=== PATIENT | female | born 1985 | race Caucasian/White ===

== ENCOUNTER → 2016-03-31 | Outpatient (CLI) | payer BC, OTHER ==
[~2016-03-31] MED LIST: CLON0.5T3 PO; HYDR-5688 PO; IBUP-1050 PO; MULT-506 PO
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
== END | disposition home or self-care (01) ==
LOC: C.RDSM 13:30
PROVIDERS: ATTEND Physical Medicine & Rehabilitation Sports Medicine
DX: S82.831A Other fracture of upper and lower end of right fibula, initial encounter for closed fracture (principal); X58.XXXA Exposure to other specified factors, initial encounter

== ENCOUNTER 2016-04-19 05:25 | Emergency (ER) | payer BC, OTHER ==
[~2016-04-19] VITALS: Ht 152.4 cm; Wt 61.5 kg
[2016-04-19 05:34] VITALS: TEMP 36.7; Ht 152.4 cm; Wt 61.5 kg
[2016-04-19] MEDS ORDERED: ONDANSETRON INJ 2 MG/ML 2 ML VIAL IV STA (05:37)
[2016-04-19] MEDS ORDERED: MoRPHine SULFATE 4 MG/ML 1 ML CARP\\VIAL IV ONE ×2 (05:45→07:00)
[2016-04-19] MEDS ORDERED: SODIUM CHLORIDE 0.9% 1000ML 1,000 ML IV ONE (05:45)
[2016-04-19] MEDS ORDERED: OPTIRAY 320 IV PRN (06:00)
[2016-04-19 06:13] LABS: BASO % 0.2 %; BASO ABS # 0.04 K/uL (0-0.2); COMPLETE YES; EOS % 1.2 %; HEMATOCRIT 36.1 % (37-47); IG% 0.2 %; LYMPH % 15.2 %; LYMPH ABS # 2.79 K/uL (1.2-3.4); MEAN CELL VOLUME 96.3 fL (80-100); MEAN CORPUSCULAR HEMOGLOBIN 32.8 pg (25-34); MEAN CORPUSCULAR HGB CONC 34.1 g/dl (32-36); MEAN PLATELET VOLUME 9.7 fL (7.4-10.4); MONO % 8.5 %; NEUT % 74.7 %; PLATELET COUNT 341 K/uL (130-400); RED BLOOD COUNT 3.75 M/uL (4.2-5.4)
[2016-04-19 06:30] LABS: BUN/CREATININE RATIO 23.3 (10-20); CALCIUM 8.5 mg/dl (8.5-10.1); CREATININE 0.7 mg/dl (0.60-1.20); POTASSIUM 3.8 mmol/L (3.5-5.1)
[2016-04-19 06:32] LABS: ALB/GLOB RATIO 1.4 (0.9-2)
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
[2016-04-19] MEDS ORDERED: MULT-506 PO (06:50)
[2016-04-19] MEDS ORDERED: CLON0.5T3 PO (06:50)
[2016-04-19] MEDS ORDERED: IBUP-1050 PO (06:51)
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
[2016-04-19] MEDS ORDERED: HYDR-5688 PO (08:08)
[2016-04-19 08:53] VITALS: BP 94/55; PULSE 80; O2SAT 99
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
== END 2016-04-19 08:54 | disposition home or self-care (01) ==
LOC: EDBD 05:25 → C.EDB 05:28
DX: S09.21XA Traumatic rupture of right ear drum, initial encounter (principal); S19.9XXA Unspecified injury of neck, initial encounter; Y04.8XXA Assault by other bodily force, initial encounter; Y92.098 Other place in other non-institutional residence as the place of occurrence of the external cause; Y07.59 Other non-family member, perpetrator of maltreatment and neglect; F17.210 Nicotine dependence, cigarettes, uncomplicated

== ENCOUNTER → 2016-04-21 | Outpatient (CLI) | payer BC ==
--- NOTE | 2016-04-21 15:32 | DIAGNOSTIC IMAGING REPORT ---
RIGHT ANKLE 3 VIEWS HISTORY: Follow-up right ankle fracture. COMPARISON: Right ankle 03/31/2016. FINDINGS: No change in alignment or appearance of the oblique fracture within the distal right fibula. This demonstrates up to 2 mm of lateral displacement. Minimal bony bridging remains unchanged. No additional healing identified. IMPRESSION: No change in alignment or appearance of the minimally healed distal right fibular fracture. No additional healing identified. Electronically signed by: Ivan Guillory M.D. 04/21/2016 3:31 PM Dictated Date/Time: 04/21/2016 3:29 PM
== END | disposition home or self-care (01) ==
LOC: C.RDSM 13:15
PROVIDERS: ATTEND Physical Medicine & Rehabilitation Sports Medicine
DX: Z09 Encounter for follow-up examination after completed treatment for conditions other than malignant neoplasm (principal)

== ENCOUNTER → 2016-05-18 | Outpatient (CLI) | payer BC ==
--- NOTE | 2016-05-18 09:30 | DIAGNOSTIC IMAGING REPORT ---
RIGHT ANKLE 3 VIEWS HISTORY: F/U RIGHT ANKLE FX Right COMPARISON: None. FINDINGS: There is again noted a slightly displaced oblique fracture within the distal right fibula. The alignment remains unchanged. Lateral soft tissue swelling has slightly improved. There is suggestion of mild bony bridging at the fracture site consistent with interval healing. No radiopaque foreign bodies. IMPRESSION: Slight interval healing of the mildly displaced distal right fibular fracture. The alignment remains unchanged. Electronically signed by: Ivan Guillory M.D. 05/18/2016 9:29 AM Dictated Date/Time: 05/18/2016 9:26 AM
== END | disposition home or self-care (01) ==
LOC: C.RDSM 09:30
PROVIDERS: ATTEND Physical Medicine & Rehabilitation Sports Medicine
DX: Z09 Encounter for follow-up examination after completed treatment for conditions other than malignant neoplasm (principal); S82.831D Other fracture of upper and lower end of right fibula, subsequent encounter for closed fracture with routine healing; X58.XXXD Exposure to other specified factors, subsequent encounter

== ENCOUNTER → 2016-07-23 | Outpatient (CLI) | payer BC ==
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
== END | disposition home or self-care (01) ==
LOC: C.RDSM 10:30
PROVIDERS: ATTEND Physician Assistant
DX: Z09 Encounter for follow-up examination after completed treatment for conditions other than malignant neoplasm (principal); M25.571 Pain in right ankle and joints of right foot; S82.831D Other fracture of upper and lower end of right fibula, subsequent encounter for closed fracture with routine healing; X58.XXXD Exposure to other specified factors, subsequent encounter

== ENCOUNTER 2018-07-21 02:51 | Inpatient (IN) ==
[2018-07-21] MEDS ORDERED: LORazepam 0.5 MG/1 ML VIAL IV STA (03:12)
[2018-07-21] MEDS ORDERED: SODIUM CHLORIDE 0.9% 1000ML 1,000 ML IV SCH (03:15)
[2018-07-21 03:32] LABS: Basophils # (auto) 0.02 K/uL (0-0.2); Basophils % (auto) 0.2 %; Eosinophils # (auto) 0.16 K/uL (0-0.5); Eosinophils % (auto) 1.5 %; Hemoglobin 11.9 g/dL (12.0-16.0); Immature Granulocytes # (auto) 0.02 K/uL (0.00-0.02); Immature Granulocytes % (auto) 0.2 %; Lymphocytes # (auto) 3.04 K/uL (1.2-3.4); Lymphocytes % (auto) 29.3 %; Mean Corpuscular Hgb Conc 36.1 g/dL (32-36); Mean Platelet Volume 9.1 fL (7.4-10.4); Monocytes # (auto) 0.78 K/uL (0.11-0.59); Monocytes % (auto) 7.5 %; Neutrophils # (auto) 6.35 K/uL (1.4-6.5); Neutrophils % (auto) 61.3 %; Platelet Count 369 K/uL (130-400); RDW Coefficient of Variation 12.6 % (11.5-14.5); Red Blood Count 3.55 M/uL (4.2-5.4); White Blood Count 10.37 K/uL (4.8-10.8)
[2018-07-21 03:44] LABS: Partial Thromboplastin Ratio 0.9; Partial Thromboplastin Time 24.1 Seconds (21.0-31.0); Prothrombin Time 10.3 Seconds (9.0-12.0)
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
--- NOTE | 2018-07-21 03:48 | Emergency Department Note ---
History of Present Illness General Chief complaint: Overdose (Intentional) Stated complaint: TOOK TOO MANY PILLS Time Seen by Provider: 07/21/18 03:02 History of Present Illness Maximum Pain Intensity: 0 This is a 33-year-old female presenting to the emergency department by triage for evaluation of intentional overdose. The patient is accompanied by a male welcome desk agent assist in the history. The patient states that she had a counseling appointment earlier today, where she spoke about "old shit in my life" which caused her to "re-live it all over again". The patient began drinking alcohol, a bottle of wine, approximately 4 to 5 hours prior to arrival, around 10 or 11 PM. She then began taking her Seroquel around 2 hours prior to arrival at 1 AM. She evidently took 30 pills, which are believed to be 25 mg tablets, however we are unable to verify this. The patient states that she did this to "get some sleep", and this was not an attempt to harm herself. She does not have suicidal or homicidal ideation. She does have an extensive mental health history including past suicide attempts. The patient's male welcome desk agent found the patient obtunded around 1 AM, and called poison control, who recommended ER evaluation. The patient herself does not report recent fever or illness. She is currently without headache, neck pain, chest pain, chest tightness, shortness of breath, or abdominal pain. She denies chance of . She admits to smoking tobacco, and denies drug use. She rates her current discomfort as 0/10. Evidently the patient has multiple medications at home, but is not believed to have taken additional pills other than the Seroquel. Home Medications Home Medications Medication Instructions Recorded Confirmed Type gabapentin 100 mg PO BID 07/21/18 07/21/18 History quetiapine [Seroquel XR] 200 mg PO PM 07/21/18 07/21/18 History Allergies Allergy/AdvReac Type Severity Reaction Status Date / Time No Known Allergies Allergy Unverified 07/21/18 03:40 Past Med/Surg History Medical History Previous known suicide attempt Depression No acute medical problems Social History Preferred Language: Armenian Feels Safe at Home: Yes Smoking Status: Current every day smoker Review of Systems A total of 10 systems reviewed and were otherwise negative Physical Exam Vital Signs Vital Signs - 24 hr 07/21/18 02:53 07/21/18 03:05 07/21/18 03:46 Temperature 36.7 C Temperature Source Oral Sepsis Recent Fever Within 48 Hours No Sepsis Action Taken by Nursing No Action Required Pulse Rate 148 H Pulse Rate [Apical] 115 H Pulse Rhythm [Apical] Regular Pulse Strength [Apical] Respiratory Rate 18 16 Respiratory Effort / Characteristics Non-Labored Spontaneous Non-Labored Spontaneous Respiratory Depth Normal Normal Blood Pressure 108/56 L Blood Pressure [Left Arm] 99/68 L Blood Pressure Mean 73 Blood Pressure Mean [Left Arm] 78 Blood Pressure Position Sitting Blood Pressure Position [Left Arm] Lying Pulse Oximetry 98 95 Oxygen Delivery Method Room Air Room Air Room Air 07/21/18 04:30 07/21/18 04:55 Temperature Temperature Source Sepsis Recent Fever Within 48 Hours Sepsis Action Taken by Nursing Pulse Rate Pulse Rate [Apical] 124 H 106 H Pulse Rhythm [Apical] Regular Regular Pulse Strength [Apical] Normal Respiratory Rate 20 16 Respiratory Effort / Characteristics Non-Labored Respiratory Depth Normal Normal Blood Pressure Blood Pressure [Left Arm] 133/63 116/54 L Blood Pressure Mean Blood Pressure Mean [Left Arm] 86 74 Blood Pressure Position Blood Pressure Position [Left Arm] Sitting Pulse Oximetry 96 Oxygen Delivery Method Room Air Room Air VITALS: Vitals are noted on the nurse's note and reviewed by myself. Vital signs with tachycardia. GENERAL: White female who is slightly slurring her speech but able to answer questions. She does appear intoxicated or under the influence of sedatives. GCS 15. HEAD: Normocephalic atraumatic. EARS: External ear normal. External auditory canals clear, tympanic membranes pearly davila without erythema or effusion bilaterally. EYES: Pupils equal round and reactive to light and accommodation. Conjunctivae without injection, sclerae without icterus. Extraocular movements intact. NOSE: Patent, turbinates without inflammation or discharge. MOUTH: Mucous membranes moist. Tonsils are not enlarged. Pharynx without erythema, blood, or exudate. Uvula midline. Airway patent. NECK: Supple without nuchal rigidity. No lymphadenopathy. No thyromegaly. Cervical spine is nontender. No meningmus. HEART: Tachycardic rate with regular rhythm LUNGS: Clear to auscultation bilaterally without wheezes, rales or rhonchi. No retractions or accessory muscle use. ABDOMEN: Positive normal bowel sounds x 4. Soft, nontender, without masses or organomegaly. MUSCULOSKELETAL: No muscle atrophy, erythema, or edema noted. Full range of motion in all extremities. NEURO: Patient was alert to person and place but not time. Cranial nerves appear grossly intact. Patient appears sedated and is answering questions very slowly, but overall appropriately. SKIN: The skin was without rashes, erythema, edema, or bruising. Capillary refill less than 2 seconds. Course Administered Medications Lactated Ringer's (Lr) 1,000 mls @ 500 mls/hr IV .Q2H ONE Stop: 07/21/18 06:57 Last Admin: 07/21/18 05:14 Dose: 500 mls/hr Documented by: [id number] Discontinued Medications Lorazepam (Ativan) 0.5 mg in 1 mls @ 1 mls/min IV NOW STA Stop: 07/21/18 03:13 Last Admin: 07/21/18 03:33 Dose: 1 mls/min Documented by: [id number] Sodium Chloride (Nss 1000ml) 1,000 mls @ 999 mls/hr IV .Q1H1M KIRK Stop: 07/21/18 04:15 Last Infusion: 07/21/18 05:18 Dose: 0 mls/hr Documented by: [id number] Admin: 07/21/18 03:32 Dose: 999 mls/hr Documented by: [id number] Potassium Chloride (Klor-Con M20) 40 meq PO NOW STA Stop: 07/21/18 04:59 Last Admin: 07/21/18 05:13 Dose: 40 meq Documented by: [id number] Medical Decision Making Differential Diagnosis Differential includes overdose on prescription medication, mental health disease, Tylenol/aspirin/ethanol, ethylene glycol, methanol, not prescribed medications/street drugs, metabolic process, traumatic process, infection, and others Laboratory Data Result diagrams: 07/21/18 03:18 07/21/18 03:18 Lab Results 07/21/18 07/21/18 07/21/18 Range/Units 03:18 03:18 03:18 WBC 10.37 (4.8-10.8) K/uL RBC 3.55 L (4.2-5.4) M/uL Hgb 11.9 L (12.0-16.0) g/dL Hct 33.0 L (37-47) % MCV 93.0 (80-100) fL MCH 33.5 (25-34) pg MCHC 36.1 H (32-36) g/dL RDW Std Deviation 43.0 (36.4-46.3) fL RDW Coeff of [place]en[place] 12.6 (11.5-14.5) % Plt Count 369 (130-400) K/uL MPV 9.1 (7.4-10.4) fL Immature Gran % (Auto) 0.2 % Neut % (Auto) 61.3 % Lymph % (Auto) 29.3 % [place] % (Auto) 7.5 % Eos % (Auto) 1.5 % Baso % (Auto) 0.2 % Immature Gran # (Auto) 0.02 (0.00-0.02) K/uL Neut # (Auto) 6.35 (1.4-6.5) K/uL Lymph # (Auto) 3.04 (1.2-3.4) K/uL [place] # (Auto) 0.78 H (0.11-0.59) K/uL Eos # (Auto) 0.16 (0-0.5) K/uL Baso # (Auto) 0.02 (0-0.2) K/uL PT 10.3 (9.0-12.0) Seconds INR 1.0 (0.9-1.1) APTT 24.1 (21.0-31.0) Seconds PTT Ratio 0.9 Sodium 140 (136-145) mmol/L Potassium 3.1 L (3.5-5.1) mmol/L Chloride 107 (98-107) mmol/L Carbon Dioxide 23 (21-32) mmol/L Anion Gap 10.0 (3-11) BUN 13 (7-18) mg/dl Creatinine 0.80 (0.6-1.2) mg/dl Est Cr Clr Drug Dosing 90.3 ml/min Est GFR ( Amer) 111.5 Est GFR (Non-Af Amer) 96.2 BUN/Creatinine Ratio 15.7 (10-20) Glucose 93 (70-99) mg/dl Calcium 8.6 (8.5-10.1) mg/dl Magnesium 2.0 (1.8-2.4) mg/dl Total Bilirubin 0.3 (0.2-1) mg/dl AST 12 L (15-37) U/L ALT 19 (12-78) U/L Alkaline Phosphatase 58 (45-117) U/L Total Creatine Kinase 63 (26-192) U/L Troponin I < 0.015 (0-0.045) ng/ml Total Protein 7.4 (6.4-8.2) gm/dl Albumin 3.9 (3.4-5.0) gm/dl Globulin 3.5 (2.5-4.0) gm/dl Albumin/Globulin Ratio 1.1 (0.9-2) Lipase 144 (73-393) U/L TSH 3.730 (0.300-4.500) uIu/ml HCG, Qual (Negative) Urine Color Urine Appearance (Clear) Urine pH (4.5-7.5) Ur Specific [place] (1.000-1.030) Urine Protein (Negative) Urine Glucose (UA) (Negative) Urine Ketones (Negative) Urine Blood (Negative) Urine Nitrite (Negative) Urine Bilirubin (Negative) Urine Urobilinogen (Negative) Ur Leukocyte Esterase (Negative) Urine WBC (Auto) (0-5) /hpf Urine RBC (Auto) (0-4) /hpf U Hyaline Cast (Auto) (0-5) /lpf U Epithel Cells (Auto) (0-5) /lpf Urine Bacteria (Auto) (Negative) Salicylates (2.8-20) mg/dl Urine Opiates Screen (Neg) Ur Methadone, Qual (Neg) Acetaminophen (10-30) ug/ml Urine Barbiturates (Neg) Ur Phencyclidine (PCP) (Neg) U Amphetamin/Meth Scrn (Neg) MDMA (Ecstasy) Screen (Neg) U Benzodiazepines Scrn (Neg) [place] (0.6-1.2) mmol/L Ur Cocaine Metabolite (Neg) U Marijuana (THC) Screen (Neg) Ethyl Alcohol mg/dL (0-3) mg/dl 07/21/18 07/21/18 07/21/18 Range/Units 03:18 03:18 03:18 WBC (4.8-10.8) K/uL RBC (4.2-5.4) M/uL Hgb (12.0-16.0) g/dL Hct (37-47) % MCV (80-100) fL MCH (25-34) pg MCHC (32-36) g/dL RDW Std Deviation (36.4-46.3) fL RDW Coeff of Nenita (11.5-14.5) % Plt Count (130-400) K/uL MPV (7.4-10.4) fL Immature Gran % (Auto) % Neut % (Auto) % Lymph % (Auto) % [place] % (Auto) % Eos % (Auto) % Baso % (Auto) % Immature Gran # (Auto) (0.00-0.02) K/uL Neut # (Auto) (1.4-6.5) K/uL Lymph # (Auto) (1.2-3.4) K/uL [place] # (Auto) (0.11-0.59) K/uL Eos # (Auto) (0-0.5) K/uL Baso # (Auto) (0-0.2) K/uL PT (9.0-12.0) Seconds INR (0.9-1.1) APTT (21.0-31.0) Seconds PTT Ratio Sodium (136-145) mmol/L Potassium (3.5-5.1) mmol/L Chloride (98-107) mmol/L Carbon Dioxide (21-32) mmol/L Anion Gap (3-11) BUN (7-18) mg/dl Creatinine (0.6-1.2) mg/dl Est Cr Clr Drug Dosing ml/min Est GFR ( Amer) Est GFR (Non-Af Amer) BUN/Creatinine Ratio (10-20) Glucose (70-99) mg/dl Calcium (8.5-10.1) mg/dl Magnesium (1.8-2.4) mg/dl Total Bilirubin (0.2-1) mg/dl AST (15-37) U/L ALT (12-78) U/L Alkaline Phosphatase (45-117) U/L Total Creatine Kinase (26-192) U/L Troponin I (0-0.045) ng/ml Total Protein (6.4-8.2) gm/dl Albumin (3.4-5.0) gm/dl Globulin (2.5-4.0) gm/dl Albumin/Globulin Ratio (0.9-2) Lipase (73-393) U/L TSH (0.300-4.500) uIu/ml HCG, Qual Negative (Negative) Urine Color Urine Appearance (Clear) Urine pH (4.5-7.5) Ur Specific [place] (1.000-1.030) Urine Protein (Negative) Urine Glucose (UA) (Negative) Urine Ketones (Negative) Urine Blood (Negative) Urine Nitrite (Negative) Urine Bilirubin (Negative) Urine Urobilinogen (Negative) Ur Leukocyte Esterase (Negative) Urine WBC (Auto) (0-5) /hpf Urine RBC (Auto) (0-4) /hpf U Hyaline Cast (Auto) (0-5) /lpf U Epithel Cells (Auto) (0-5) /lpf Urine Bacteria (Auto) (Negative) Salicylates 2.5 L (2.8-20) mg/dl Urine Opiates Screen (Neg) Ur Methadone, Qual (Neg) Acetaminophen < 2 L (10-30) ug/ml Urine Barbiturates (Neg) Ur Phencyclidine (PCP) (Neg) U Amphetamin/Meth Scrn (Neg) MDMA (Ecstasy) Screen (Neg) U Benzodiazepines Scrn (Neg) [place] < 0.2 L (0.6-1.2) mmol/L Ur Cocaine Metabolite (Neg) U Marijuana (THC) Screen (Neg) Ethyl Alcohol mg/dL 89.0 H (0-3) mg/dl 07/21/18 07/21/18 Range/Units 04:30 04:30 WBC (4.8-10.8) K/uL RBC (4.2-5.4) M/uL Hgb (12.0-16.0) g/dL Hct (37-47) % MCV (80-100) fL MCH (25-34) pg MCHC (32-36) g/dL RDW Std Deviation (36.4-46.3) fL RDW Coeff of [place]en[place] (11.5-14.5) % Plt Count (130-400) K/uL MPV (7.4-10.4) fL Immature Gran % (Auto) % Neut % (Auto) % Lymph % (Auto) % [place] % (Auto) % Eos % (Auto) % Baso % (Auto) % Immature Gran # (Auto) (0.00-0.02) K/uL Neut # (Auto) (1.4-6.5) K/uL Lymph # (Auto) (1.2-3.4) K/uL [place] # (Auto) (0.11-0.59) K/uL Eos # (Auto) (0-0.5) K/uL Baso # (Auto) (0-0.2) K/uL PT (9.0-12.0) Seconds INR (0.9-1.1) APTT (21.0-31.0) Seconds PTT Ratio Sodium (136-145) mmol/L Potassium (3.5-5.1) mmol/L Chloride (98-107) mmol/L Carbon Dioxide (21-32) mmol/L Anion Gap (3-11) BUN (7-18) mg/dl Creatinine (0.6-1.2) mg/dl Est Cr Clr Drug Dosing ml/min Est GFR ( Amer) Est GFR (Non-Af Amer) BUN/Creatinine Ratio (10-20) Glucose (70-99) mg/dl Calcium (8.5-10.1) mg/dl Magnesium (1.8-2.4) mg/dl Total Bilirubin (0.2-1) mg/dl AST (15-37) U/L ALT (12-78) U/L Alkaline Phosphatase (45-117) U/L Total Creatine Kinase (26-192) U/L Troponin I (0-0.045) ng/ml Total Protein (6.4-8.2) gm/dl Albumin (3.4-5.0) gm/dl Globulin (2.5-4.0) gm/dl Albumin/Globulin Ratio (0.9-2) Lipase (73-393) U/L TSH (0.300-4.500) uIu/ml HCG, Qual (Negative) Urine Color Yellow Urine Appearance Clear (Clear) Urine pH 5.0 (4.5-7.5) Ur Specific [place] 1.031 H (1.000-1.030) Urine Protein Negative (Negative) Urine Glucose (UA) Negative (Negative) Urine Ketones Negative (Negative) Urine Blood 3+ H (Negative) Urine Nitrite Negative (Negative) Urine Bilirubin Negative (Negative) Urine Urobilinogen Negative (Negative) Ur Leukocyte Esterase Negative (Negative) Urine WBC (Auto) 1-5 (0-5) /hpf Urine RBC (Auto) 0-4 (0-4) /hpf U Hyaline Cast (Auto) 1-5 (0-5) /lpf U Epithel Cells (Auto) >30 H (0-5) /lpf Urine Bacteria (Auto) Negative (Negative) Salicylates (2.8-20) mg/dl Urine Opiates Screen Neg (Neg) Ur Methadone, Qual Neg (Neg) Acetaminophen (10-30) ug/ml Urine Barbiturates Neg (Neg) Ur Phencyclidine (PCP) Neg (Neg) U Amphetamin/Meth Scrn Neg (Neg) MDMA (Ecstasy) Screen Neg (Neg) U Benzodiazepines Scrn Neg (Neg) [place] (0.6-1.2) mmol/L Ur Cocaine Metabolite Neg (Neg) U Marijuana (THC) Screen Neg (Neg) Ethyl Alcohol mg/dL (0-3) mg/dl ECG Data Additional Comments: EKG #1 @ 03:05 am Sinus tachycardia at 118 bpm Possible left atrial enlargement IA 164 QRS 86 QT 330/QTc 462 EKG #2@ 04:07am Sinus tachycardia at 112 bpm Possible left atrial enlargement IA 156 QRS 88 QT 346/QTc 472 MDM Narrative Physical exam and history were performed. Nursing notes, EMR, and Medication List were personally reviewed. Patient appears to have taken 30 Seroquel tonight, as well as consumed a bottle of wine. On examination the patient is able to answer questions, although she appears significantly sedated. The case was discussed with my attending physician, who also independently evaluated the patient. Based on the patient's reported overdose we did contact [facility] who recommended blood work, hydration, Ativan, and monitoring for at least 12 hours. EKG was performed as above and she was placed on the site monitor. The patient's blood work is as above and was reviewed. She does not have a significantly elevated white blood cell count, gross anemia, bandemia, or significant electrolyte imbalance. Lipase and transaminases are not diagnostic. She is not . TSH shows euthyroid state. Troponin is negative. CK is 63. Urine does not show evidence of infection, and drug of abuse screen is negative. Her alcohol is 89. Salicylates, Tylenol, and lithium levels are negative. Chest x-ray does not show acute process. Repeat EKG was performed does not show significant changes. Overall the patient does not appear well for discharge home. She continues to have intermittent episodes of tachycardia, but thankfully has not gone hypotensive. Medical clearance will take at least 12 hours after the ingestion of the Seroquel. I discussed the case with the on-call hospitalist, Dr. Shetty, who agreed to evaluate the patient here in the department. Please see his dictation for further patient course, plan, and disposition. The chart was completed utilizing [employer] Speech Voice Recognition Software. Grammatical errors, random word insertions, pronoun errors, and incomplete sentences are an occasional consequence of this system due to software limitations, ambient noise, and hardware issues. Any formal questions or con cerns about the content, text, or information contained within the body of this dictation should be directly addressed to the provider for clarification. . Impression & Plan Intentional drug overdose Critical Care Time I have personally spent greater than 30 minutes of critical care time in the dir ect management of this patient. This includes bedside care, interpretation of diagnostic studies, and testing, discussion with consultants, patient, and family members, and other required patient management activities. This 30 minutes is in excess of all separately billable procedures. Discharge Plan Visit Data Chief Complaint: Overdose (Intentional) Stated Complaint: TOOK TOO MANY PILLS ED Provider: Pradeep Sorenson ED Midlevel Provider: Poncho Horton Discharge Problem: Intentional drug overdose Forms Stand Alone Forms: My [facility] [employer] Prescriptions Prescriptions: No Action quetiapine [Seroquel XR] 200 mg Tablet Extended Release 24 Hr 200 mg PO PM RF: 0 gabapentin 100 mg Capsule 100 mg PO BID RF: 0 Referrals Referrals: Shira García DO [Primary Care Provider] - Discharge Problem: Intentional drug overdose Qualifiers: Encounter type: initial encounter Qualified Code(s): T50.902A - Poisoning by unspecified drugs, medicaments and biological substances, intentional self-harm, initial encounter
[2018-07-21 03:51] LABS: Alanine Aminotransferase 19 U/L (12-78); Albumin Level 3.9 gm/dl (3.4-5.0); Aspartate Aminotransferase 12 U/L (15-37); BUN Creatinine Ratio 15.7 (10-20); Blood Urea Nitrogen 13 mg/dl (7-18); Calcium 8.6 mg/dl (8.5-10.1); Carbon Dioxide 23 mmol/L (21-32); Chloride 107 mmol/L (98-107); Creatinine Clr Calc Pharmacy 90.3 ml/min; Est GFR (African American) 111.5; Est GFR (Non-African American) 96.2; Glucose 93 mg/dl (70-99); Potassium 3.1 mmol/L (3.5-5.1); Sodium 140 mmol/L (136-145)
[2018-07-21 03:52] LABS: Pregnancy Test, Serum Negative (Negative)
[2018-07-21 04:00] LABS: Acetaminophen < 2 ug/ml (10-30); Lithium < 0.2 mmol/L (0.6-1.2); Salicylate 2.5 mg/dl (2.8-20)
[2018-07-21 04:02] LABS: Albumin Globulin Ratio 1.1 (0.9-2); Alkaline Phosphatase 58 U/L (45-117); Bilirubin,Total 0.3 mg/dl (0.2-1); Creatine Kinase 63 U/L (26-192); Globulin 3.5 gm/dl (2.5-4.0); Total Protein 7.4 gm/dl (6.4-8.2); Troponin I < 0.015 ng/ml (0-0.045)
[2018-07-21 04:37] LABS: Appearance Urine Clear (Clear); Bacteria Urine Automated Negative (Negative); Bilirubin Urine Negative (Negative); Blood Urine 3+ (Negative); Color Urine Yellow; Epithelial Cell Urine Auto >30 /lpf (0-5); Glucose Urine UA Negative (Negative); Ketones Urine Negative (Negative); Leukocyte Esterase Urine Negative (Negative); Nitrite Urine Negative (Negative); Protein Urine Negative (Negative); RBC Urine Automated 0-4 /hpf (0-4); Specific Gravity Urine 1.031 (1.000-1.030); Urobilinogen Urine Negative (Negative)
[2018-07-21 04:55] LABS: Amphetamines+Metham, Urine Neg (Neg); Barbiturates, Urine Neg (Neg); Benzodiazepine, Urine Neg (Neg); Cocaine, Urine Neg (Neg); MDMA (Ecstacy), Urine Neg (Neg); Methadone, Urine Neg (Neg); Opiate, Urine Neg (Neg); Phencyclidine, Urine Neg (Neg)
[2018-07-21] MEDS ORDERED: POTASSIUM CHLORIDE 20 MEQ TABCR PO STA (04:58)
[2018-07-21] MEDS ORDERED: LACTATED RINGER'S 1,000 ML IV ONE (04:58)
--- NOTE | 2018-07-21 05:59 | History & Physical Report ---
Date of Service July 21, 2018 Assessment & Plan (1) Encephalopathy: Multifactorial : Intentional Seroquel overdose (nonsuicidal as per family), history of bipolar disorder Alcohol intoxication, alcohol abuse as per records Hypokalemia ongoing tobacco abuse Medical telemetry Follow Poison control recommendations Hold home nor psychotropics until patient mentating well and evaluated by Psychiatry for impulsive behavior. IVF, replace K DT precautions Nicotine patch PRN DVT prophylaxis Lovenox subcu Full code Patient's mother requesting updates from providers. Ms. Rin Singh, contact number, [phone]. History of Present Illness Chief Complaint: Overdose as per records Primary Care Provider: Shira García, History obtained from patient, family, and records. Unable to obtain history from patient secondary to disoriented state. Medical history significant for mood disorder, panic attacks, ongoing tobacco/alcohol abuse as per records. Yesterday patient had a counseling appointment which negatively affected patient. As per patient's adhesive primer, patient started drinking alcohol last night followed by taking 30 tablets of Seroquel 25 mg prescription so she could fall asleep. No suicidality as per patient's mother. Patient later found in early a.m. to be obtunded. Patient brought to the emergency room. Medical History as above Surgical History : section, BTL, versus drainage Family History : Heart disease COPD, breast cancer, stroke Personal/Social history : Tobacco/alcohol abuse as per records, [employer] work as per records Allergies Allergy/AdvReac Type Severity Reaction Status Date / Time No Known Allergies Allergy Unverified 07/21/18 03:40 Home Medications Home Medications Medication Instructions Recorded Confirmed Type gabapentin 100 mg PO BID 07/21/18 07/21/18 History quetiapine [Seroquel XR] 200 mg PO PM 07/21/18 07/21/18 History Past Med/Surg History Medical History Previous known suicide attempt Depression No acute medical problems Social History Preferred Language: Danish Communication Ability: Effective Communication Ability Comment: some slurring of speech [employer] Required: No Beliefs That Will Affect Care: None Current Living Situation: Alone Other Information That Helps Us Care for You: No Feels Safe at Home: Yes Safety Concerns: Feels Safe At This Time Smoking Status: Current every day smoker Tobacco Type: cigarettes Do You Dip or Chew Tobacco: No Second Hand Exposure: No Tobacco Cessation Education Requested by Patient: No Hx Alcohol Use: Yes Alcohol type: wine Hx Substance Use: Yes Substance Use Type Other:: Seroquel Last Used Substance: Just Prior to Arrival Review of Systems Review of Systems: Could not be reliably obtained Physical Exam Physical Exam: GENERAL: Lethargic, disoriented, slurred speech, obese , no respiratory distress, looks older than stated age SKIN: Pallor , warm HEENT: Pale palpebral conjunctivae, no ptosis, dry buccal mucosa NECK : Supple, short neck, no tenderness CHEST : Decreased breath sounds , no tenderness HEART : Tachycardic , no obvious murmurs ABDOMEN: Some distention, nontender EXTREMITIES : No LE swelling/tenderness, no other conspicuous deformities noted NEUROLOGIC : Lethargic, disoriented, no facial asymmetry, no other gross focality Results & Data Vital Signs (Past 12 Hours) Vital Signs Temp Pulse Pulse Resp BP BP Pulse Ox 07/21/18 04:55 106 H 16 116/54 L 96 07/21/18 04:30 124 H 20 133/63 07/21/18 03:46 115 H 16 99/68 L 95 07/21/18 02:53 36.7 C 148 H 18 108/56 L 98 Laboratory Results Laboratory Results WBC 10.37 K/uL (4.8-10.8) 07/21/18 03:18 RBC 3.55 M/uL (4.2-5.4) L 07/21/18 03:18 Hgb 11.9 g/dL (12.0-16.0) L 07/21/18 03:18 Hct 33.0 % (37-47) L 07/21/18 03:18 MCV 93.0 fL (80-100) 07/21/18 03:18 MCH 33.5 pg (25-34) 07/21/18 03:18 MCHC 36.1 g/dL (32-36) H 07/21/18 03:18 RDW Std Deviation 43.0 fL (36.4-46.3) 07/21/18 03:18 RDW Coeff of [place]en[place] 12.6 % (11.5-14.5) 07/21/18 03:18 Plt Count 369 K/uL (130-400) 07/21/18 03:18 MPV 9.1 fL (7.4-10.4) 07/21/18 03:18 Immature Gran % (Auto) 0.2 % 07/21/18 03:18 Neut % (Auto) 61.3 % 07/21/18 03:18 Lymph % (Auto) 29.3 % 07/21/18 03:18 [place] % (Auto) 7.5 % 07/21/18 03:18 Eos % (Auto) 1.5 % 07/21/18 03:18 Baso % (Auto) 0.2 % 07/21/18 03:18 Immature Gran # (Auto) 0.02 K/uL (0.00-0.02) 07/21/18 03:18 Neut # (Auto) 6.35 K/uL (1.4-6.5) 07/21/18 03:18 Lymph # (Auto) 3.04 K/uL (1.2-3.4) 07/21/18 03:18 [place] # (Auto) 0.78 K/uL (0.11-0.59) H 07/21/18 03:18 Eos # (Auto) 0.16 K/uL (0-0.5) 07/21/18 03:18 Baso # (Auto) 0.02 K/uL (0-0.2) 07/21/18 03:18 PT 10.3 Seconds (9.0-12.0) 07/21/18 03:18 INR 1.0 (0.9-1.1) 07/21/18 03:18 APTT 24.1 Seconds (21.0-31.0) 07/21/18 03:18 PTT Ratio 0.9 07/21/18 03:18 Sodium 140 mmol/L (136-145) 07/21/18 03:18 Potassium 3.1 mmol/L (3.5-5.1) L 07/21/18 03:18 Chloride 107 mmol/L (98-107) 07/21/18 03:18 Carbon Dioxide 23 mmol/L (21-32) 07/21/18 03:18 10.0 (3-11) 07/21/18 03:18 BUN 13 mg/dl (7-18) 07/21/18 03:18 0.80 mg/dl (0.6-1.2) 07/21/18 03:18 Est Cr Clr Drug Dosing 90.3 ml/min 07/21/18 03:18 Est GFR ( Amer) 111.5 07/21/18 03:18 Est GFR (Non-Af Amer) 96.2 07/21/18 03:18 15.7 (10-20) 07/21/18 03:18 Glucose 93 mg/dl (70-99) 07/21/18 03:18 Calcium 8.6 mg/dl (8.5-10.1) 07/21/18 03:18 Magnesium 2.0 mg/dl (1.8-2.4) 07/21/18 03:18 0.3 mg/dl (0.2-1) 07/21/18 03:18 AST 12 U/L (15-37) L 07/21/18 03:18 ALT 19 U/L (12-78) 07/21/18 03:18 58 U/L (45-117) 07/21/18 03:18 63 U/L (26-192) 07/21/18 03:18 < 0.015 ng/ml (0-0.045) 07/21/18 03:18 7.4 gm/dl (6.4-8.2) 07/21/18 03:18 3.9 gm/dl (3.4-5.0) 07/21/18 03:18 3.5 gm/dl (2.5-4.0) 07/21/18 03:18 1.1 (0.9-2) 07/21/18 03:18 144 U/L (73-393) 07/21/18 03:18 TSH 3.730 uIu/ml (0.300-4.500) 07/21/18 03:18 HCG, Qual Negative (Negative) 07/21/18 03:18 Yellow 07/21/18 04:30 Clear (Clear) 07/21/18 04:30 5.0 (4.5-7.5) 07/21/18 04:30 Ur Specific [place] 1.031 (1.000-1.030) H 07/21/18 04:30 Negative (Negative) 07/21/18 04:30 Negative (Negative) 07/21/18 04:30 Negative (Negative) 07/21/18 04:30 3+ (Negative) H 07/21/18 04:30 Negative (Negative) 07/21/18 04:30 Negative (Negative) 07/21/18 04:30 Negative (Negative) 07/21/18 04:30 Ur Leukocyte Esterase Negative (Negative) 07/21/18 04:30 1-5 /hpf (0-5) 07/21/18 04:30 0-4 /hpf (0-4) 07/21/18 04:30 U Hyaline Cast (Auto) 1-5 /lpf (0-5) 07/21/18 04:30 U Epithel Cells (Auto) >30 /lpf (0-5) H 07/21/18 04:30 Negative (Negative) 07/21/18 04:30 Salicylates 2.5 mg/dl (2.8-20) L 07/21/18 03:18 Neg (Neg) 07/21/18 04:30 Ur Methadone, Qual Neg (Neg) 07/21/18 04:30 Acetaminophen < 2 ug/ml (10-30) L 07/21/18 03:18 Neg (Neg) 07/21/18 04:30 Ur Phencyclidine (PCP) Neg (Neg) 07/21/18 04:30 U Amphetamin/Meth Scrn Neg (Neg) 07/21/18 04:30 Neg (Neg) 07/21/18 04:30 U Benzodiazepines Scrn Neg (Neg) 07/21/18 04:30 [place] < 0.2 mmol/L (0.6-1.2) L 07/21/18 03:18 Ur Cocaine Metabolite Neg (Neg) 07/21/18 04:30 U Marijuana (THC) Screen Neg (Neg) 07/21/18 04:30 89.0 mg/dl (0-3) H 07/21/18 03:18 Diagnostic Findings Chest x-ray as per my interpretation atelectasis EKG (07/21/2018, 6:15 AM) as per my interpretation: Rate 105, sinus tachycardia, incomplete RBBB, T wave flattening lateral leads, QTC 450
--- NOTE | 2018-07-21 06:05 | XRay Report ---
XR chest 1V portable CLINICAL HISTORY: tachycardia cardiac arrhythmia COMPARISON STUDY: No previous studies for comparison. FINDINGS: The bones soft tissues and hemidiaphragms are normal. The cardiomediastinal silhouette is n ormal. The lungs are clear. The pulmonary vasculature is normal. IMPRESSION: Negative chest. The above report was generated using voice recognition software. It may contain grammatical, syntax or spelling errors. Electronically signed by: Tin Felix M.D. 07/21/2018 6:03 AM
[2018-07-21] MEDS ORDERED: LORazepam 2 MG/4 ML VIAL IV PRN (09:33)
[2018-07-21] MEDS ORDERED: LORazepam 3 MG/6 ML VIAL IV PRN (09:33)
[2018-07-21] MEDS ORDERED: PROMETHAZINE HCL 12.5 MG in SODIUM CHLORIDE 0.9% 50 ML IV PRN (09:33)
[2018-07-21] MEDS ORDERED: ATIVAN IV ALCOHOL WITHDRAWL IV SCH (09:33)
[2018-07-21] MEDS ORDERED: ACETAMINOPHEN 325 MG TAB PO PRN (09:33)
[2018-07-21] MEDS ORDERED: LORazepam 1 MG/2 ML VIAL IV PRN (09:33)
[2018-07-21] MEDS ORDERED: MULTI-VITAMIN INFUSION 10 ML, THIAMINE HCL 100 MG, FOLIC ACID 1 MG, POTASSIUM CHLORIDE ... IV SCH (10:00)
[2018-07-21] MEDS: ENOXAPARIN INJ 40 MG/0.4 ML SYR SQ SCH (13:13)
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
--- NOTE | 2018-07-21 18:27 | Hospitalist Progress Note ---
Date of Service July 21, 2018 Assessment & Plan (1) Encephalopathy: 2/2 alcohol intoxication and intentional seroquel overdose. No events on telemetry overnight. Resolved. (2) Intentional drug overdose: Pt states she was just trying to sleep. Psych to disposition. Pt appears unstable and not in control of her emotions. She undressed in front of the officers called for the code giovanni, she was smoking in her hospital bathroom. [address] (3) Bipolar disorder: holding seroquel in setting of recent overdose. (4) Smoking: (5) DVT prophylaxis: Lovenox Full Code Dispo-pending psychiatric evaluation. Yue Rogers DO [facility] Hospitalist Subjective 33 yo Bipolar female who presented to the ER this morning after intentionally taking 30 pills of seroquel and drinking 1 bottle of wine. She states that her boyfriend was upset at her and told her to leave their house. She states that after he went to sleep she didn't know what to do, so she decided she would need some help sleeping and took the above. She denies suicidal ideations or a h/o SI in the past. However, she does state that she was prescribed clonazepam in the past for anxiety, and decided to self increase her dose at which point refills were declined by the ordering provider. Again she states that she was just trying to use more pills to go to sleep. From a medical standpoint she denies any chest pain, shortness of breath, palpitations or other symptoms. She was tachycardic in sinus rhythm overnight, but this has resolved as was likely related to encephalopathy and alcohol intoxication in the setting of seroquel overdose. She appears clinically improved overall. After my initial assessment, she began to say to the nurse that she wanted to leave because she was claustrophobic, and became agressive. She was offered IV benzos to deal with her reported anxiety but responded that she didn't want that because there wasn't enough of it to calm her down. In the setting of an intentional overdose with a history of self-prescribing in the past, and no way to get away from her boyfriend who is a trigger I filed a 302 petition to hold her until psychiatry could evaluate her with all the information needed to make an appropriate disposition. She became aggressive and pushed a nurses aid, and a code giovanni was called. She was smoking cigarettes in her bathroom. Psych iiaison was called to the bedside to mediate. Review of Systems Review of Systems: All systems reviewed & are unremarkable except as noted in HPI & below Physical Exam Physical Exam: CONSTITUTIONAL: WNWD, vitals as above, generally well- appearing EYES: normal conjuctivae, no scleral icterus ENT: MMM NECK: trachea midline RESPIRATORY: clear to auscultation bilaterally, no crackles, rales or wheezes, normal respiratory effort CARDIOVASCULAR: regular rate and rhythm, S1 and 2 heard without murmurs, gallops or rubs, no JVD, no peripheral edema GASTROINTESTINAL: normal bowel sounds, soft, nontender, nondistended MUSCULOSKELETAL: strength 5/5 throughout, head is normocephalic and atraumatic, ambulatory SKIN: warm and dry NEUROLOGIC: no facial palsy, no dysarthria. CN 2-12 grossly intact, normal cognition, normal speech, no tremor PSYCHIATRIC: alert cooperative and oriented to person, place and time. Results & Data Vital Signs (Past 12 Hours) Vital Signs Temp Pulse Pulse Resp BP BP Pulse Ox 07/21/18 09:34 36.5 C 106 H 20 122/74 100 07/21/18 08:00 89 20 129/85 99 07/21/18 06:00 102 H 16 127/73 98 07/21/18 04:55 106 H 16 116/54 L 96 07/21/18 04:30 124 H 20 133/63 07/21/18 03:46 115 H 16 99/68 L 95 07/21/18 02:53 36.7 C 148 H 18 108/56 L 98 Laboratory Results Short CBC 07/21/18 Range/Units 03:18 WBC 10.37 (4.8-10.8) K/uL Hgb 11.9 L (12.0-16.0) g/dL Hct 33.0 L (37-47) % Plt Count 369 (130-400) K/uL BMP 07/21/18 03:18 Sodium 140 Potassium 3.1 L Chloride 107 Carbon Dioxide 23 BUN 13 Creatinine 0.80 Glucose 93 Calcium 8.6 Cardiac Enzymes 07/21/18 Range/Units 03:18 Total Creatine Kinase 63 (26-192) U/L Troponin I < 0.015 (0-0.045) ng/ml Liver Function 07/21/18 Range/Units 03:18 Total Bilirubin 0.3 (0.2-1) mg/dl AST 12 L (15-37) U/L ALT 19 (12-78) U/L Alkaline Phosphatase 58 (45-117) U/L Albumin 3.9 (3.4-5.0) gm/dl Urine 07/21/18 Range/Units 04:30 Urine Color Yellow Urine Appearance Clear (Clear) Urine pH 5.0 (4.5-7.5) Ur Specific [place] 1.031 H (1.000-1.030) Urine Protein Negative (Negative) Urine Glucose (UA) Negative (Negative) Medications Administered Current Inpatient Medications Acetaminophen (Tylenol) 325 mg PO Q4H PRN PRN Reason: Pain or Fever Stop: 08/20/18 09:32 Clonazepam (Klonopin) 0.5 mg PO TID PRN PRN Reason: Anxiety Stop: 08/20/18 18:24 Enoxaparin Sodium (Lovenox) 40 mg SQ [facility] Stop: 08/20/18 09:59 Last Admin: 07/21/18 13:13 Dose: Not Given Documented by: Folic Acid (Folvite) 1 mg PO [facility] Stop: 08/21/18 08:59 Multivitamins 10 ml/ Thiamine HCl 100 mg/ Folic Acid 1 mg/Potassium Chloride 20 meq/Sodium Chloride 1,021.2 mls @ 80 mls/hr IV .[id number] [facility] Stop: 07/21/18 22:45 Last Admin: 07/21/18 10:45 Dose: 80 mls/hr Documented by: Lorazepam (Ativan) 1 mg in 2 mls @ 2 mls/min IV UD PRN; Protocol PRN Reason: EtOH Withdrawl AWSS Score 6,7 Stop: 08/20/18 09:32 Lorazepam (Ativan) 2 mg in 4 mls @ 4 mls/min IV UD PRN; Protocol PRN Reason: EtOH Withdrawl AWSS Score 8,9 Stop: 08/20/18 09:32 Lorazepam (Ativan) 3 mg in 6 mls @ 4 mls/min IV ONCE PRN; Protocol PRN Reason: EtOH Withdrawl AWSS Score >=10 Stop: 08/20/18 09:32 Multivitamins (Multivitamin Tab) 1 tab PO [facility] Stop: 08/21/18 08:59 Thiamine HCl (Vitamin B-1) 100 mg PO QAM [facility] Stop: 08/21/18 08:59 (1) Intentional drug overdose Encounter type: initial encounter Qualified Code(s): T50.902A - Poisoning by unspecified drugs, medicaments and biological substances, intentional self-harm, initial encounter
[2018-07-21] MEDS ORDERED: QUETIAPINE FUMARATE 100 MG TABLET PO ONE (21:00)
[2018-07-21] MEDS ORDERED: QUETIAPINE FUMARATE 200 MG TABCR PO ONE ×2 (21:00→22:30)
[2018-07-21] MEDS: NICOTINE 21 MG/24 HR TDSY TD SCH (22:21)
[2018-07-21] MEDS: clonazePAM 0.5 MG TAB PO PRN (23:50)
[2018-07-22 06:16] LABS: Basophils # (auto) 0.03 K/uL (0-0.2); Basophils % (auto) 0.5 %; Eosinophils # (auto) 0.33 K/uL (0-0.5); Eosinophils % (auto) 5.2 %; Hematocrit (blood only) 35.4 % (37-47); Hemoglobin 12.1 g/dL (12.0-16.0); Immature Granulocytes # (auto) 0.02 K/uL (0.00-0.02); Immature Granulocytes % (auto) 0.3 %; Lymphocytes # (auto) 2.81 K/uL (1.2-3.4); Lymphocytes % (auto) 44.5 %; Mean Corpuscular Hgb Conc 34.2 g/dL (32-36); Mean Corpuscular Volume 93.7 fL (80-100); Mean Platelet Volume 9.2 fL (7.4-10.4); Monocytes # (auto) 0.61 K/uL (0.11-0.59); Monocytes % (auto) 9.7 %; Neutrophils # (auto) 2.52 K/uL (1.4-6.5); Neutrophils % (auto) 39.8 %; Platelet Count 399 K/uL (130-400); RDW Standard Deviation 44.7 fL (36.4-46.3); Red Blood Count 3.78 M/uL (4.2-5.4); White Blood Count 6.32 K/uL (4.8-10.8)
[2018-07-22 07:03] LABS: Calcium 8.7 mg/dl (8.5-10.1); Creatinine Clr Calc Pharmacy 90.3 ml/min; Est GFR (African American) 111.5; Est GFR (Non-African American) 96.2; Magnesium 2.1 mg/dl (1.8-2.4); Potassium 3.8 mmol/L (3.5-5.1)
[2018-07-22] MEDS: NICOTINE 21 MG/24 HR TDSY TD SCH (08:03)
[2018-07-22] MEDS: ENOXAPARIN INJ 40 MG/0.4 ML SYR SQ SCH (08:04)
[2018-07-22] MEDS: clonazePAM 0.5 MG TAB PO PRN (08:37)
[2018-07-22] MEDS ORDERED: FOLIC ACID 1 MG TAB PO SCH (09:00)
[2018-07-22] MEDS ORDERED: MULTIVITAMIN TAB PO SCH (09:00)
[2018-07-22] MEDS ORDERED: THIAMINE HCL 100 MG TAB PO SCH (09:00)
--- NOTE | 2018-07-22 11:14 | Psychiatric Progress Note ---
Date of Service July 22, 2018 Impression / Recommendations Impression Patient's case was reviewed with psychiatric nurse liaison. 302 petition completed by attending physician on the medical floor yesterday evening, with hopes to gather collateral information from supports to determine if inpatient psychiatric admission was to be recommended. See nursing/nurse liaison notes regarding events overnight. Pt reportedly demanding to leave AMA, becoming increasingly agitated with staff, unwilling to participate in attempts to safety plan home, and the need for a code davila to be called. Based on this behavior a 302 was completed by [facility] and a bed search was started. Given behavior last evening and patient's unwillingness to cooperate with attempts to develop an adequate safety plan, psychiatry is recommending following through with transfer - as patient has already been accepted to [facility] with transportation pending. Given quetiapine overdose and patient's own reports of being dissatisfied with the medication's effect - we are recommending the medication be held, additional medication recommendations will be deferred to admitting provider at [facility]. Supervising physician was directly involved in extensive review and discussion of the patient's case and participated in medical decision making regarding treatment recommendations. Risk Factors Assessment Male: No : Yes Do You Have Access To A Gun?: No Health Problems: No Mental Health Diagnoses: Yes Substance Use Disorders: Yes Previous Attempt: Yes Family History of Suicide: No Previous Psychiatric Hospitalization: Yes Smoker: Yes Protective Factors Assessment Oriental Orthodox Beliefs: No : No Responsible for Young Children: No Employed: No Stable Relationships: No Good Rapport with Provider: No Interval History Identifying Information 33-year-old female admitted medically on 07/21/18 following intentional overuse of quetiapine - with unclear intent. Being treated medically for multifactorial encephalopathy due to overdose and alcohol intoxication/abuse. BAL - 89.0 on admission. Psychiatric consultation initially requested to evaluate patient for "impulsive behavior". Information is gathered from hospital documentation and the patient herself and is considered to be somewhat reliable. Physical Exam Vital Signs (Past 24 Hours) Last Vital Signs Temp 36.6 C 07/22/18 11:05 Pulse 81 07/22/18 11:05 Resp 17 07/22/18 11:05 BP 123/78 07/22/18 11:05 Pulse Ox 97 07/22/18 11:05 Results & Data Laboratory Results Laboratory Results - last 24 hr 07/22/18 07/22/18 05:53 05:53 WBC 6.32 RBC 3.78 L Hgb 12.1 Hct 35.4 L MCV 93.7 MCH 32.0 MCHC 34.2 RDW Std Deviation 44.7 RDW Coeff of Nenita 13.0 Plt Count 399 MPV 9.2 Immature Gran % (Auto) 0.3 Neut % (Auto) 39.8 Lymph % (Auto) 44.5 Cottle % (Auto) 9.7 Eos % (Auto) 5.2 Baso % (Auto) 0.5 Immature Gran # (Auto) 0.02 Neut # (Auto) 2.52 Lymph # (Auto) 2.81 Cottle # (Auto) 0.61 H Eos # (Auto) 0.33 Baso # (Auto) 0.03 Sodium 139 Potassium 3.8 D Chloride 109 H Carbon Dioxide 25 Anion Gap 5.0 BUN 13 Creatinine 0.80 Est Cr Clr Drug Dosing 90.3 Est GFR ( Amer) 111.5 Est GFR (Non-Af Amer) 96.2 BUN/Creatinine Ratio 16.0 Glucose 91 Calcium 8.7 Magnesium 2.1 Current Inpatient Medications Current Inpatient Medications: Current Inpatient Medications Acetaminophen (Tylenol) 325 mg PO Q4H PRN PRN Reason: Pain or Fever Stop: 08/20/18 09:32 Clonazepam (Klonopin) 0.5 mg PO TID PRN PRN Reason: Anxiety Stop: 08/20/18 18:24 Last Admin: 07/22/18 08:37 Dose: 0.5 mg Documented by: Enoxaparin Sodium (Lovenox) 40 mg SQ [facility] Stop: 08/20/18 09:59 Last Admin: 07/22/18 08:04 Dose: Not Given Documented by: Folic Acid (Folvite) [facility] Stop: 08/21/18 08:59 Last Admin: 07/22/18 08:03 Dose: 1 mg Documented by: Lorazepam (Ativan) 1 mg in 2 mls @ 2 mls/min IV UD PRN; Protocol PRN Reason: EtOH Withdrawl AWSS Score 6,7 Stop: 08/20/18 09:32 Lorazepam (Ativan) 2 mg in 4 mls @ 4 mls/min IV UD PRN; Protocol PRN Reason: EtOH Withdrawl AWSS Score 8,9 Stop: 08/20/18 09:32 Lorazepam (Ativan) 3 mg in 6 mls @ 4 mls/min IV ONCE PRN; Protocol PRN Reason: EtOH Withdrawl AWSS Score >=10 Stop: 08/20/18 09:32 Miscellaneous (Remove Nicoderm Patch) 1 ea N/A HS [facility] Stop: 08/21/18 08:58 Last Admin: 07/22/18 08:04 Dose: 1 ea Documented by: Multivitamins (Multivitamin Tab) 1 tab PO QAM [facility] Stop: 08/21/18 08:59 Last Admin: 07/22/18 08:03 Dose: 1 tab Documented by: Nicotine (Nicoderm Cq) 21 mg TD DAILY [facility] Stop: 08/20/18 22:29 Last Admin: 07/22/18 08:03 Dose: 21 mg Documented by: Thiamine HCl (Vitamin B-1) 100 mg PO QAM [facility] Stop: 08/21/18 08:59 Last Admin: 07/22/18 08:03 Dose: 100 mg Documented by:
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
== END 2018-07-22 12:55 | DRG 918 ==
LOC: ED 02:51 → 2N 06:12